=== PATIENT | male | born 1960 ===

== ENCOUNTER → 2022-04-26 | Outpatient (CLI) | payer OTHER | END | disposition home or self-care (01) | LOC: LAB 12:33 → LAB SHORT 12:33 | DX: R21 Rash and other nonspecific skin eruption (principal) | CPT/HCPCS: 87070; 87077; 87147; 87186; 87205 ==

== ENCOUNTER → 2022-08-02 | Outpatient (CLI) | payer OTHER | LOC: LAB 09:51 → LAB SHORT 09:51 | DX: M79.671 Pain in right foot (principal) | CPT/HCPCS: 84550 ==

== ENCOUNTER 2025-09-21 11:53 | Day surgery (SDC) | payer OTHER ==
[~2025-09-21] VITALS: Ht 177.8 cm; Wt 83.7 kg
[2025-09-21] MEDS ORDERED: SULFAMETHOXAZO1 EAC1 (12:11)
[2025-09-21 16:14] VITALS: BP 119/88
== END 2025-09-21 14:45 | disposition home or self-care (01) ==
LOC: ORSCSDS 11:53 → ORD 11-16 14:45
PROVIDERS: Family Medicine
PROC: 0DB58ZX Excision of Esophagus, Via Natural or Artificial Opening Endoscopic, Diagnostic (ICD-10-PCS; principal; 2025-09-21 13:30)
PROC: 0DB68ZX Excision of Stomach, Via Natural or Artificial Opening Endoscopic, Diagnostic (ICD-10-PCS; principal; 2025-09-21 13:30)
DX: R93.89 Abnormal findings on diagnostic imaging of other specified body structures (principal); K29.70 Gastritis, unspecified, without bleeding; K22.2 Esophageal obstruction; K44.9 Diaphragmatic hernia without obstruction or gangrene; F43.10 Post-traumatic stress disorder, unspecified; I48.91 Unspecified atrial fibrillation; E78.2 Mixed hyperlipidemia; Z79.82 Long term (current) use of aspirin; Z79.899 Other long term (current) drug therapy
CPT/HCPCS: 88305; 88342; J2704; J7120